=== PATIENT | male | born 1995 | race Caucasian/White ===

== ENCOUNTER 2017-02-15 16:28 | Emergency (ER) | payer OTHER, BC ==
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
== END 2017-02-15 16:47 | disposition disaster alternative care site (69) ==
LOC: GACC 16:28
DX: S16.1XXA Strain of muscle, fascia and tendon at neck level, initial encounter (principal); V49.9XXA Car occupant (driver) (passenger) injured in unspecified traffic accident, initial encounter

== ENCOUNTER → 2017-03-08 | Outpatient (CLI) | payer BC | END | disposition disaster alternative care site (69) | LOC: GRAD 14:57 | DX: C62.90 Malignant neoplasm of unspecified testis, unspecified whether descended or undescended (principal); Z90.79 Acquired absence of other genital organ(s); Q63.2 Ectopic kidney; Q26.3 Partial anomalous pulmonary venous connection | CPT/HCPCS: Q9967 ==